=== PATIENT | female | born 2000 | race Hispanic/Latino ===

== ENCOUNTER 2019-06-09 16:36 | Emergency (ER) | payer SELFPAY | END 2019-06-09 16:54 | disposition home or self-care (01) | LOC: EDH 16:36 | DX: G44.209 Tension-type headache, unspecified, not intractable (principal); R07.89 Other chest pain; F41.1 Generalized anxiety disorder; F32.9 Major depressive disorder, single episode, unspecified | CPT/HCPCS: 99281 ==